=== PATIENT | male | born 1955 | race Caucasian/White ===

== ENCOUNTER 2020-06-26 07:55 | Day surgery (SDC) | payer MEDICARE, BC ==
[~2020-06-26 07:55] MED LIST: Sodium Chloride 0.9% 10 ML Syringe FLUSH PRN
[2020-06-26] MEDS ORDERED: Propofol 200 MG/20 ML SDV ONE ×2 (08:31→09:49)
[2020-06-26] MEDS ORDERED: Midazolam 1 MG/ML 2 ML SDV ONE ×2 (08:31→09:49)
[2020-06-26] MEDS ORDERED: Lactated Ringers 1,000 ML IV SCH (08:45)
--- NOTE | 2020-06-26 09:07 | PCM.PN ---
- General Info Date of Service: 06/26/20 - Review of Systems Systems Review Comment:: 65-year-old male with family history of colon cancer in his mother here for colonoscopy. He states his last colonoscopy was about 7 years ago. He is medically stable to proceed today. His recent history and physical is reviewed and no significant changes are noted. I have discussed the proposed colonoscopy with the patient. Risks possible complications reviewed. He agrees to proceed. - Patient Data Vitals - Most Recent: Last Vital Signs Temp 96.4 F L 06/26/20 08:37 Pulse 75 06/26/20 08:37 Resp 18 06/26/20 08:37 BP 156/83 H 06/26/20 08:37 Pulse Ox 100 06/26/20 08:37 Weight - Most Recent: 88.904 kg Med Orders - Current: Current Medications Lactated Ringer's (Ringers, Lactated) 1,000 mls @ 125 mls/hr IV ASDIRECTED KODY Last Admin: 06/26/20 08:33 Dose: 125 mls/hr Documented by: Sodium Chloride (Saline Flush) 10 ml FLUSH ASDIRECTED PRN PRN Reason: Keep Vein Open Discontinued Medications Midazolam HCl (Versed 1 Mg/Ml) Confirm Administered Dose 2 mg .ROUTE .STK-MED ONE Stop: 06/26/20 08:32 Propofol (Diprivan 20 Ml) Confirm Administered Dose 400 mg .ROUTE .STK-MED ONE Stop: 06/26/20 08:32 Sepsis Event Note - Focused Exam Vital Signs: Vital Signs Temp Pulse Resp BP Pulse Ox 06/26/20 08:37 96.4 F L 75 18 156/83 H 100 - Problem List Review Problem List Initiated/Reviewed/Updated: Yes - My Orders Last 24 Hours: My Active Orders 06/26/20 08:45 Lactated Ringers [Ringers, Lactated] 1,000 ml IV ASDIRECTED - Assessment Assessment:: Family history of colon cancer - Plan Plan:: Colonoscopy
--- NOTE | 2020-06-26 09:55 | PCM.OPNOTE ---
- General Post-Op/Procedure Note Date of Surgery/Procedure: 06/26/20 Operative Procedure(s): Colonoscopy with polypectomy Findings: Sessile polyp at the hepatic flexure Extensive left colon diverticulosis Pre Op Diagnosis: Family history of colon cancer Post-Op Diagnosis: Colon polyp. Diverticulosis Anesthesia Technique: MAC Primary Surgeon: Wilberto Garcia Pathology: Colon polyp EBL in mLs: 0 Complications: None Condition: Good
[2020-06-26 10:17] VITALS: BP 124/73; PULSE 63
--- NOTE | 2020-06-26 10:35 | OR ---
Date of Procedure: 06/26/2020 PREOPERATIVE DIAGNOSIS: Family history of colon cancer. POSTOPERATIVE DIAGNOSES: Colon polyp, left colon diverticulosis. OPERATIONS PERFORMED: Colonoscopy with polypectomy. INDICATIONS FOR SURGERY: This 65-year-old male comes for colonoscopy. He has a known family history of colon cancer in his mother. FINDINGS: Single polyp is noted today. This is a 12 mm polyp in the hepatic flexure, sessile in configuration, and somewhat irregular in shape. The patient also has extensive diverticulosis of the left colon with multiple large diverticula, although these do not appear to be acutely inflamed. DESCRIPTION OF PROCEDURE: The patient was taken to the operating room. He was given intravenous sedation, and with him in the left lateral decubitus position, digital rectal exam was performed showing no rectal masses. The Olympus colonoscope was inserted into the rectum and retroflex examination of the rectal canal was performed. The scope was then carefully advanced under direct visualization through the entire length of the colon. Hand pressure was required, but eventually the cecum was able to be thoroughly viewed. The ileocecal valve and appendiceal orifice were identified, and the light was noted to transilluminate the abdominal wall in the right lower quadrant. At the level of the hepatic flexure, the above-described polyp was identified. This was removed with a cautery snare and retrieved into a polyp trap. The scope was then slowly withdrawn, sequentially re-examining the colonic segments until the entire colon and rectum had been fully examined. The scope was removed, and the patient was taken from the operating room in satisfactory condition. ESTIMATED BLOOD LOSS: Zero. COMPLICATIONS: None. PROGNOSIS: Good. CHRIS Garcia MD /[id number]
== END 2020-06-26 11:15 | disposition home or self-care (01) ==
LOC: LL.SDS 07:55
PROVIDERS: ATTEND Surgery
DX: Z12.11 Encounter for screening for malignant neoplasm of colon (principal); D12.3 Benign neoplasm of transverse colon; K57.30 Diverticulosis of large intestine without perforation or abscess without bleeding; H61.20 Impacted cerumen, unspecified ear; G25.0 Essential tremor; H91.90 Unspecified hearing loss, unspecified ear; Z80.0 Family history of malignant neoplasm of digestive organs; Z79.82 Long term (current) use of aspirin; Z79.899 Other long term (current) drug therapy; Z98.890 Other specified postprocedural states; Z01.812 Encounter for preprocedural laboratory examination; Z20.828 Contact with and (suspected) exposure to other viral communicable diseases
CPT/HCPCS: 00812; J2250; J2704; J7120; U0002